=== PATIENT | female | born 1995 | race Caucasian/White ===

== ENCOUNTER → 2020-08-29 14:27 | Outpatient (CLI) | payer BC, SELFPAY ==
--- NOTE | ~2020-08-29 | US_ITS ---
EXAMINATION: US thyroid DATE: 08/29/2020 14:50 INDICATION: Goiter. TECHNIQUE: Multiple ultrasound images of the thyroid were obtained. COMPARISON: None. FINDINGS: The right thyroid lobe measures 5.5 x 1.6 x 1.6 cm. The left thyroid lobe measures 5.3 x 1.4 x 1.9 c m. There is normal echotexture and echogenicity throughout the thyroid gland. No discrete nodules id entified. Normal vascular flow is present. IMPRESSION: 1. Normal thyroid. Reviewed, dictated and finalized at location A. [employer] IMPRESSION: 1. Normal thyroid.
== END ==
PROVIDERS: Visit Provider Internal Medicine Endocrinology, Diabetes & Metabolism
DX: E04.9 Nontoxic goiter, unspecified (principal)
CPT/HCPCS: 76536

== ENCOUNTER → 2021-01-23 08:12 | Outpatient (CLI) | payer OTHER, BC, SELFPAY ==
--- NOTE | ~2021-01-23 | MR_ITS ---
EXAMINATION: MR knee RT wo con DATE: 01/23/2021 09:12 INDICATION: Right knee pain. Right knee instability and swelling. TECHNIQUE: Magnetic resonance imaging (MRI) of the right knee was performed without intravenous contr ast. Sequences included axial PD-weighted FS FSE, coronal PD-weighted FSE and PD-weighted FS FSE, sag ittal PD-weighted FSE, and sagittal T2-weighted FS FSE. COMPARISON: None. FINDINGS: Medial compartment: Medial meniscus is normal. There is a fracture of the posterior aspect of medial tibial plateau invol ving less than 20% of the articular surface with up to 4 mm depression of the articular surface. The medial compartment cartilage is normal. Lateral compartment: Lateral meniscus is normal. The lateral compartment cartilage is normal. There is bone marrow edema o f posterior aspect of tibial condyle, consistent with contusion. Patellofemoral compartment: Patellar cartilage is normal. Trochlear cartilage is normal. Ligaments and tendons: There is a complete tear of anterior cruciate ligament. There is a partial tear of posterior cruciate ligament characterized by increased signal intensity. There is a partial tear of fibular collateral ligament characterized by thickening and increased signal intensity. Medial collateral ligament is no rmal. There is mild patellar tendinopathy. Fluid: There is a moderate-sized hemarthrosis. There is mild prepatellar and superficial infrapatellar bursi tis. IMPRESSION: 1. Depression fracture of posterior aspect of medial tibial plateau. 2. Complete tear of anterior cruciate ligament. 3. Partial tear of posterior cruciate ligament (grade 2 sprain). 4. Partial tear of fibular collateral ligament (grade 2 sprain). 5. Moderate-sized hemarthrosis. Reviewed, dictated and finalized at location A.
== END ==
DX: M79.89 Other specified soft tissue disorders (principal); S83.511A Sprain of anterior cruciate ligament of right knee, initial encounter; X58.XXXA Exposure to other specified factors, initial encounter; S83.521A Sprain of posterior cruciate ligament of right knee, initial encounter
CPT/HCPCS: 73721